=== PATIENT | female | born 1945 | race Caucasian/White ===

== ENCOUNTER 2017-08-23 10:59 | Outpatient (CLI) | payer MEDICARE, OTHER ==
--- NOTE | 2017-08-23 12:56 | MRI ---
MRI CERVICAL SPINE WITHOUT CONTRAST: INDICATIONS: History of cervical radiculopathy. COMPARISON: Prior exam dated 09/10/2016. FINDINGS: There are multilevel losses of normal disk signal and height. The visualized posterior fossa appears within normal limits. The bone marrow signal intensity is normal appearing. No acute fracture is e vident. C2-C3: There is moderate right and mild left facet joint degenerative change, which is stable to the comparison exam. No appreciable central canal or neural foraminal narrowing is demonstrated. C3-C4: There is advanced facet joint degenerative change bilaterally. There is very slight anterior translation of C3 on C4, which is stable. There is no appreciable central canal or neural foraminal narrowing. C4-C5: There is advanced left and mild to moderate right facet joint degenerative change. There is a broad-based disk bulge with uncovertebral hypertrophy. There is stable mild left neural foraminal narrowing. C5-C6: There is a broad-based bulge with uncovertebral hypertrophy and facet joint degenerative oneill ge causing mild effacement of the ventral subarachnoid space without cord compression. The uncoverte bral hypertrophy is slightly greater on the right, inducing mild right neural foraminal narrowing, wh ich is stable. C6-C7: There is a broad-based bulge with uncovertebral hypertrophy inducing stable mild central moises l narrowing without cord compression. There is stable mild right neural foraminal narrowing. C7-T1: There is no definite appreciable central canal or neural foraminal narrowing. IMPRESSION: 1. Stable multilevel spondylosis of the cervical spine with mild central canal narrowing seen at C5- C6 through C6-C7. 2. Mild neural foraminal narrowing, as detailed above. POS: [facility]
== END 2017-08-23 11:00 | disposition home or self-care (01) ==
LOC: TBSIIMAG 10:59
PROVIDERS: ATTEND Surgery
DX: M47.22 Other spondylosis with radiculopathy, cervical region (principal); M48.02 Spinal stenosis, cervical region; M99.81 Other biomechanical lesions of cervical region
CPT/HCPCS: 72141

== ENCOUNTER 2017-10-11 12:57 | Outpatient (CLI) | payer MEDICARE, OTHER | END 2017-10-11 12:58 | disposition home or self-care (01) | LOC: BICMRI 12:57 | PROVIDERS: ATTEND Family Medicine | DX: M51.16 Intervertebral disc disorders with radiculopathy, lumbar region (principal); M51.17 Intervertebral disc disorders with radiculopathy, lumbosacral region | CPT/HCPCS: 72148 ==

== ENCOUNTER 2017-12-28 12:54 | Outpatient (CLI) | payer MEDICARE, OTHER | END 2017-12-28 12:55 | disposition home or self-care (01) | LOC: BICRAD 12:54 | PROVIDERS: ATTEND Surgery | DX: M47.26 Other spondylosis with radiculopathy, lumbar region (principal); M41.86 Other forms of scoliosis, lumbar region | CPT/HCPCS: 72110 ==

== ENCOUNTER 2018-09-18 08:45 | Outpatient (CLI) | payer MEDICARE, OTHER ==
--- NOTE | 2018-09-18 09:11 | BD ---
EXAM: DEXA bone density examination HISTORY: 73-year-old postmenopausal female for screening COMPARISON: DEXA study 2017 FINDINGS: L1--bone mineral density 0.890 g/sq cm; T score -0.9 L2--bone mineral density 0.956 g/sq cm; T score -0.7 L3--bone mineral density 1.138 g/sq cm; T score 0.5 L4--bone mineral density 1.214 g/sq cm; T score 1.4 Total L1-L4--bone mineral density 1.066 g/sq cm; T score 0.2 Left femoral neck--bone mineral density0.641; T score -1.9 Total proximal left femur--bone mineral density 0.835; T score 0.9 This is a significant decrease in bone mineral density of the lumbar spine from the comparison examin ation 2017, -2.4%. IMPRESSION: Osteopenia This patient has a 10 year WHO fracture risk of a major osteoporotic fracture of 11% and of a hip fracture of 2.2%.
== END 2018-09-18 08:46 | disposition home or self-care (01) ==
LOC: BICMAMMO 08:45
PROVIDERS: ATTEND Family Medicine
DX: Z13.820 Encounter for screening for osteoporosis (principal); M85.89 Other specified disorders of bone density and structure, multiple sites; Z78.0 Asymptomatic menopausal state
CPT/HCPCS: 77080

== ENCOUNTER 2020-02-21 13:01 | Outpatient (CLI) | payer MEDICARE, OTHER ==
--- NOTE | 2020-02-21 13:20 | RAD ---
Exam: 3 views lumbar spine HISTORY: Low back pain, read and left buttock. FINDINGS: 5 lumbar type vertebra. Vacuum disc phenomenon at L3-L4 and L4-L5. Moderate loss of disc sp otis height. No fractures or malalignment. There is osteophyte formation at L2-L3, L3-L4. Visualized sacrum and bony pelvis are intact. No spondylolisthesis or spondylolysis. Hypertrophic changes of the posterior elements at L4-L5 and L5 -S1 IMPRESSION: Degenerative disc disease of the lower lumbar spine. Correlation made with lumbar spine M [place] 10/11/2017 does demonstrate significant degenerative change. There is central canal stenosis at these levels. Follow-up MRI may be beneficial.
== END 2020-02-21 13:02 | disposition home or self-care (01) ==
LOC: SCSRAD 13:01
PROVIDERS: ATTEND Family Medicine
DX: M54.5 Low back pain (principal); M51.36 Other intervertebral disc degeneration, lumbar region; M47.816 Spondylosis without myelopathy or radiculopathy, lumbar region; M48.061 Spinal stenosis, lumbar region without neurogenic claudication
CPT/HCPCS: 72100

== ENCOUNTER 2020-04-24 12:29 | Outpatient (CLI) | payer MEDICARE, OTHER ==
--- NOTE | 2020-04-24 13:41 | MRI ---
MRI Lumbar Spine without IVcontrast: HISTORY: Left side sciatica. Patient complains of low back pain that radiates down left leg with associated nu mbness and tingling. COMPARISON: 10/11/2017 FINDINGS: A 1.5 cm T2 hyperintense and corresponding T1 hypointense lesion is seen in the junction of the midpo rtion superior pole right kidney statistically most likely representing a cyst. This has enlarged compared to prior study previously measuring 1 cm. There is incomplete visualization of a 1.97 T2 hyp erintense and corresponding T1 hypointense cystic lesion seen in the left ovary which is difficult to further characterize due to incomplete imaging but likely represents an ovarian cyst. This could b e confirmed with follow-up pelvic ultrasound. Conus medullaris is normal in morphology and terminates at the L1-2 level. Paravertebral soft tissues have a normal appearance. T11-12 and T12-L1: Mild disc bulges are present without significant central canal or neural foraminal narrowing. Prominent Schmorl's node is seen in the inferior endplate of the T10 vertebral body. L1-2: Minimal disc osteophyte complex. Central spinal canal and neural foramina are patent. L2-3: Again noted is a Schmorl's node present in the inferior endplate L2 vertebral body. Loss of int ervertebral disc height is present. Broad based disc osteophyte complex is present. Facet hypertrophic changes and ligamentous thickening are noted. Findings are similar to the prior exam res ulting in mild to moderate central canal narrowing. No significant neural foraminal narrowing is present. L3-4: Loss of intervertebral disc height with endplate degenerative changes. Broad-based disc osteoph yte complex is present. There are facet hypertrophic changes and ligamentous thickening. Moderate central canal narrowing is present with narrowing of the lateral recesses. Minimal bilateral neural f oraminal narrowing is present. L4-5: Loss of intervertebral disc height. Endplate degenerative changes are present. There is broad-b ased disc osteophyte complex, facet hypertrophic changes and ligamentous thickening. Findings result in moderate to severe central canal narrowing. There is mild right and minimal left-sided neur al foraminal narrowing. L5-S1: Loss of intervertebral disc height. Facet hypertrophic changes and ligamentous thickening are noted. Broad-based disc osteophyte complex is present with a left central and paracentral focal disc protrusion. This does result in mass effect on the traversing left S1 nerve root with slight pos terior displacement of the nerve root as well. A disc osteophyte complex also appears to contact the traversing right S1 nerve root. Mild generalized central canal narrowing is present. Again noted is left foraminal narrowing, and the disc osteophyte complex laterally does appear to contact the exiting left L5 nerve root. 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 IMPRESSION: 1. Multilevel degenerative changes seen throughout the lumbar spine majority of which have not signif icantly progressed when compared to the prior exam. However, there is a greater broad-based central and left paracentral disc protrusion now present at the L5-S1 level which contacts the bilateral santiago ersing S1 nerve roots with mass effect and slight posterior displacement of the left S1 nerve root. Correlation for left S1 radiculopathy is recommended. 2. Findings suggestive of right renal cyst with probable left ovarian cyst. Cystic lesion left ovary is incompletely imaged. Follow-up pelvic ultrasound may be helpful.
--- NOTE | 2020-04-24 14:44 | RAD ---
LEFT HIP TWO VIEWS: 04/24/20 HISTORY: Hip pain. Arthritic changes of the lower lumbar spine is seen. Left hip joint is fairly well preserved. No frac ture or other bony findings. IMPRESSION: Unremarkable left hip. POS: [facility]
== END 2020-04-24 12:30 | disposition home or self-care (01) ==
LOC: BICMRI 12:29
PROVIDERS: ATTEND Family Medicine
DX: M25.552 Pain in left hip (principal); M51.16 Intervertebral disc disorders with radiculopathy, lumbar region; M43.10 Spondylolisthesis, site unspecified; M47.26 Other spondylosis with radiculopathy, lumbar region; M51.27 Other intervertebral disc displacement, lumbosacral region
CPT/HCPCS: 72148

== ENCOUNTER 2020-05-01 10:46 | Outpatient (CLI) | payer MEDICARE, OTHER ==
--- NOTE | 2020-05-01 11:36 | ULT ---
Pelvic ultrasound: 05/01/2020 COMPARISON: None available HISTORY: Cystic lesion in the left ovary seen on prior lumbar spine MRI TECHNIQUE: Multiplanar grayscale sonographic imaging of the pelvis is obtained with endovaginal imagi ng. The left ovary is assessed with Doppler interrogation including color flow and spectral analysis FINDINGS: The left ovary measures 2.8 x 1.9 x 2.4 cm and contains a simple appearing cyst measuring 2 .1 x 1.4 x 2.3 cm. The left ovary demonstrates normal blood flow. No free pelvic fluid is seen. The uterus and the right ovary are nonvisualized, consistent with the patient's provided surgical history . IMPRESSION: 2.3 cm simple cyst left ovary. Follow-up advised given patient age.
== END 2020-05-01 10:47 | disposition home or self-care (01) ==
LOC: BICULT 10:46
PROVIDERS: ATTEND Family Medicine
DX: N83.202 Unspecified ovarian cyst, left side (principal)
CPT/HCPCS: 76856

== ENCOUNTER 2020-08-20 14:45 | Outpatient (CLI) | payer MEDICARE, OTHER | END 2020-08-20 14:46 | disposition home or self-care (01) | LOC: BICRAD 14:45 | PROVIDERS: ATTEND Family Medicine | DX: M25.552 Pain in left hip (principal); M79.652 Pain in left thigh ==

== ENCOUNTER 2020-10-29 14:17 | Outpatient (CLI) | payer MEDICARE, OTHER | END 2020-10-29 14:18 | disposition home or self-care (01) | LOC: SCSMRI 14:17 | PROVIDERS: ATTEND Specialist | DX: M87.9 Osteonecrosis, unspecified (principal) ==

== ENCOUNTER 2021-10-19 14:12 | Outpatient (CLI) | payer MEDICARE, OTHER | END 2021-10-19 14:13 | disposition home or self-care (01) | LOC: SCSRAD 14:12 | PROVIDERS: ATTEND Family Medicine | DX: S20.211A Contusion of right front wall of thorax, initial encounter (principal); N39.0 Urinary tract infection, site not specified; B96.20 Unspecified Escherichia coli [E. coli] as the cause of diseases classified elsewhere | CPT/HCPCS: 71046; 80053; 85025 ==

== ENCOUNTER 2021-10-28 14:54 | Outpatient (CLI) | payer MEDICARE | END 2021-10-28 14:55 | disposition home or self-care (01) | LOC: CT 14:54 | PROVIDERS: ATTEND Family Medicine | DX: R10.9 Unspecified abdominal pain (principal); S20.211A Contusion of right front wall of thorax, initial encounter; B96.20 Unspecified Escherichia coli [E. coli] as the cause of diseases classified elsewhere; R11.2 Nausea with vomiting, unspecified; R74.8 Abnormal levels of other serum enzymes; N20.0 Calculus of kidney; N83.8 Other noninflammatory disorders of ovary, fallopian tube and broad ligament | CPT/HCPCS: 74176 ==

== ENCOUNTER 2022-07-22 11:02 | Outpatient (CLI) | payer MEDICARE, OTHER ==
[2022-07-22] MEDS ORDERED: GASTROGRAFIN 30 ML BOT ONE (15:36)
[2022-07-22] MEDS ORDERED: Iopamidol 370 76% 100 ML VIAL ONE (15:36)
== END 2022-07-22 11:03 | disposition home or self-care (01) ==
LOC: CT 11:02
PROVIDERS: ATTEND Surgery
DX: Z12.9 Encounter for screening for malignant neoplasm, site unspecified (principal); K63.89 Other specified diseases of intestine; N28.1 Cyst of kidney, acquired; N20.0 Calculus of kidney; S72.002A Fracture of unspecified part of neck of left femur, initial encounter for closed fracture; N94.89 Other specified conditions associated with female genital organs and menstrual cycle
CPT/HCPCS: 71270; 74178; 82565; Q9963; Q9967

== ENCOUNTER 2022-07-22 16:27 | Inpatient (IN) | payer OTHER, MEDICARE ==
[2022-07-22] MEDS ORDERED: Ketorolac Tromethamine 30 MG/ML VIAL ONE (17:42)
[2022-07-22 18:08] LABS: #Basophils 0.1 thou/uL (0.0-0.2); #Lymphocytes 2.3 thou/uL (1.20-3.40); #Monocytes 0.8 thou/uL (0.11-0.59); #Neutrophils 7.7 thou/uL (1.40-6.50); %Basophils 0.9 % (0.0-1.0); %Eosinophils 0.3 % (0.0-10.0); %Lymphocytes 21.3 % (21.0-51.0); %Monocytes 7.5 % (0.0-10.0); Hemoglobin 10.4 g/dL (12.0-16.0); Mean Corpuscular HGB CONC 34.7 g/dL (32.0-36.0); Mean Corpuscular Hemoglobin 33.7 pg (27.0-31.0); Mean Corpuscular Volume 97.3 fl (78.0-98.0); Mean Platelet Volume 6.6 fL (7.4-10.4); Platelet Count 358 10x3/uL (130-400); RBC Distribution Width 12.8 % (11.5-14.5); Red Blood Cell (RBC) Count 3.09 mill/uL (4.20-5.40)
[2022-07-22 18:15] LABS: INR-International Normal Ratio 0.9; PTT 27.1 sec (22.9-36.1); Prothrombin Time 12.9 sec (12.0-14.7)
[2022-07-22 18:28] LABS: ALT (SGPT) 29 U/L (8-55); AST (SGOT) 22 U/L (5-34); Albumin 4.2 g/dL (3.4-4.8); Alkaline Phosphatase 139 U/L (40-110); Anion Gap 13 mmol/L (10-20); BUN (Urea Nitrogen) 20 mg/dL (9.8-20.1); Bilirubin, Total 0.3 mg/dL (0.2-1.2); Calc. Creatinine Clearance 0 mL/min (70-130); Calcium 9.9 mg/dL (7.8-10.44); Carbon Dioxide 28 mmol/L (23-31); Chloride 96 mmol/L (98-107); Estimated GFR 51; Globulin 2.8 g/dL (2.4-3.5); Glucose 85 mg/dL (83-110); Potassium 4.5 mmol/L (3.5-5.1); Sodium 132 mmol/L (136-145)
[2022-07-22] MEDS ORDERED: Ondansetron PF 4 MG/2 ML Vial ONE (18:54)
[2022-07-22 19:02] LABS: Phosphorus 3.6 mg/dL (2.3-4.7)
[2022-07-22] MEDS ORDERED: Morphine 2 MG/ML VIAL SLOW IVP PRN (19:02)
[2022-07-22] MEDS ORDERED: Dextrose 50% Abboject 50 ML SYRINGE SLOW IVP PRN (19:02)
[2022-07-22] MEDS ORDERED: Ondansetron PF 4 MG/2 ML Vial IVP PRN (19:02)
[2022-07-22] MEDS ORDERED: hydrALAZINE 20 MG/ML VIAL SLOW IVP PRN (19:02)
[2022-07-22] MEDS ORDERED: Dextrose 5% in Water 1,000 ML IV PRN (19:02)
[2022-07-22] MEDS ORDERED: traMADol HCl 50 MG TAB PO PRN (19:05)
[2022-07-22] MEDS ORDERED: Morphine 4 MG/ML VIAL ONE (19:07)
[2022-07-22] MEDS: Sodium Chloride 0.9% 1,000 ML IV SCH (20:38)
[2022-07-22] MEDS: Acetaminophen 500 MG TAB PO SCH (20:39)
[2022-07-22] MEDS: traMADol HCl 50 MG TAB PO SCH (20:40)
[2022-07-22] MEDS: Senokot S 8.6-50 MG TAB PO SCH (20:40)
[2022-07-22] MEDS ORDERED: Famotidine 20 MG TAB PO SCH (21:00)
[2022-07-22 22:36] VITALS: BMI 21.0
[2022-07-23] MEDS: traMADol HCl 50 MG TAB PO SCH ×4 (01:12→19:36)
[2022-07-23] MEDS: Acetaminophen 500 MG TAB PO SCH ×4 (01:13→19:32)
[2022-07-23 06:14] LABS: #Lymphocytes 1.8 thou/uL (1.20-3.40); #Monocytes 0.7 thou/uL (0.11-0.59); #Neutrophils 5.4 thou/uL (1.40-6.50); %Basophils 0.5 % (0.0-1.0); %Eosinophils 0.5 % (0.0-10.0); %Monocytes 8.4 % (0.0-10.0); %Neutrophils 67.6 % (42.0-75.0); Hemoglobin 9.2 g/dL (12.0-16.0); Mean Corpuscular HGB CONC 32.7 g/dL (32.0-36.0); Mean Corpuscular Hemoglobin 32.1 pg (27.0-31.0); Mean Corpuscular Volume 98.1 fl (78.0-98.0); Mean Platelet Volume 6.6 fL (7.4-10.4); Platelet Count 314 10x3/uL (130-400); RBC Distribution Width 12.9 % (11.5-14.5); Red Blood Cell (RBC) Count 2.88 mill/uL (4.20-5.40)
[2022-07-23 06:32] LABS: Anion Gap 14 mmol/L (10-20); BUN (Urea Nitrogen) 19 mg/dL (9.8-20.1); Calc. Creatinine Clearance 38 mL/min (70-130); Carbon Dioxide 23 mmol/L (23-31); Chloride 99 mmol/L (98-107); Estimated GFR 55; Glucose 82 mg/dL (83-110); Magnesium 1.9 mg/dL (1.6-2.6); Potassium 4.4 mmol/L (3.5-5.1); Sodium 132 mmol/L (136-145)
[2022-07-23] MEDS: Sodium Chloride 0.9% 1,000 ML IV SCH (06:51)
[2022-07-23] MEDS ORDERED: Clindamycin/D5W 900 MG in Premix Bag 1 BAG IVPB SCH (09:00)
[2022-07-23] MEDS ORDERED: fentaNYL PF 100 MCG/2 ML SYRINGE ONE (09:32)
[2022-07-23] MEDS ORDERED: CEFAZOLIN 2 GM VIAL ONE (09:38)
[2022-07-23] MEDS ORDERED: Sodium Chloride 0.9% 0 ML ONE (09:38)
[2022-07-23] MEDS ORDERED: Clindamycin/D5W 900 mg/50 ml Premix Bag ONE (09:44)
[2022-07-23] MEDS ORDERED: Rocuronium Bromide 10 MG/ML (10ML VIAL) ONE (09:59)
[2022-07-23] MEDS ORDERED: Lidocaine 1% PF 5 ML VIAL ONE (09:59)
[2022-07-23] MEDS ORDERED: Phenylephrine 10 MG/ML VIAL ONE (09:59)
[2022-07-23] MEDS ORDERED: GLYCOPYRROLATE/PF 0.2 MG/ML VIAL ONE (09:59)
[2022-07-23] MEDS ORDERED: Ketorolac Tromethamine 30 MG/ML VIAL ONE (09:59)
[2022-07-23] MEDS ORDERED: Ondansetron PF 4 MG/2 ML Vial ONE ×2 (09:59→12:08)
[2022-07-23] MEDS ORDERED: PROPOFOL 200 MG/20 ML VIAL ONE (09:59)
[2022-07-23] MEDS ORDERED: ePHEDrine Sulfate 50 MG/10 ML VIAL ONE (09:59)
[2022-07-23] MEDS ORDERED: NEOSTIGMINE 3 MG/3 ML SYR 3 MG/3 ML SYRINGE ONE (09:59)
[2022-07-23] MEDS ORDERED: SUGAMMADEX SODIUM 200 MG/2 ML VIAL ONE (11:02)
[2022-07-23] MEDS ORDERED: Ondansetron HCl/PF 4 MG/2 ML Vial IVP PRN (11:15)
[2022-07-23] MEDS ORDERED: Promethazine HCl 25 MG/ML VIAL IM PRN (11:15)
[2022-07-23] MEDS ORDERED: fentaNYL 50 mcg/mL 1 mL Vial ONE ×2 (11:29→12:08)
[2022-07-23] MEDS: Senokot S 8.6-50 MG TAB PO SCH ×2 (11:33→20:39)
[2022-07-23] MEDS: Polyethylene Glycol 3350 17 GM Packet PO SCH (11:33)
[2022-07-23] MEDS ORDERED: Promethazine HCl 25 MG/ML VIAL ONE (12:23)
[2022-07-23 14:28] LABS: #Lymphocytes 1.2 thou/uL (1.20-3.40); #Monocytes 1.3 thou/uL (0.11-0.59); #Neutrophils 15.7 thou/uL (1.40-6.50); %Eosinophils 0.2 % (0.0-10.0); %Lymphocytes 6.7 % (21.0-51.0); %Monocytes 7.4 % (0.0-10.0); %Neutrophils 85.8 % (42.0-75.0); Hemoglobin 8.6 g/dL (12.0-16.0); Mean Corpuscular HGB CONC 32.9 g/dL (32.0-36.0); Mean Corpuscular Hemoglobin 33.1 pg (27.0-31.0); Mean Platelet Volume 6.6 fL (7.4-10.4); Platelet Count 298 10x3/uL (130-400); RBC Distribution Width 12.8 % (11.5-14.5); White Blood Cell (WBC) Count 18.2 10x3/uL (4.8-10.8)
[2022-07-23 14:53] LABS: Anion Gap 16 mmol/L (10-20); BUN (Urea Nitrogen) 16 mg/dL (9.8-20.1); Calc. Creatinine Clearance 41 mL/min (70-130); Calcium 8.5 mg/dL (7.8-10.44); Carbon Dioxide 18 mmol/L (23-31); Chloride 104 mmol/L (98-107); Estimated GFR 60; Glucose 95 mg/dL (83-110); Magnesium 1.6 mg/dL (1.6-2.6); Phosphorus 4.2 mg/dL (2.3-4.7); Potassium 4.1 mmol/L (3.5-5.1); Sodium 134 mmol/L (136-145)
[2022-07-23] MEDS ORDERED: Hydrocortisone Sod Succ/PF 100 mg/2 ml Vial IVP SCH ×2 (16:45→22:00)
[2022-07-23] MEDS: Dexamethasone 4 mg/ml Vial SLOW IVP SCH (17:51)
[2022-07-23] MEDS: Clindamycin/D5W 900 MG in Premix Bag 1 BAG IVPB SCH (20:38)
[2022-07-23] MEDS: Famotidine 20 MG TAB PO SCH (20:39)
[2022-07-24 00:10] LABS: Bacteria/HPF None Seen HPF (None Seen); Bilirubin Negative (Negative); Blood, Urine Negative (Negative); CAUTI Indications for Culture Pelvic or flank pain; Clarity Clear (Clear); Glucose, Urine (Dipstick) Normal (Negative); Ketone, Urine 20 mg/dL (Negative); Leukocyte Negative Leu/uL (Negative); Nitrite Negative (Negative); Protein, Urine (Dipstick) Negative (Neg-Trace); RBC/HPF 0-3 HPF (0-3); Specific Gravity, Urine 1.008 (1.002-1.036); Squamous Epithelial 0-3 HPF (0-3); Urobilinogen Normal mg/dL (Less than 2); WBC/HPF 0-3 HPF (0-3)
[2022-07-24 00:18] LABS: Urine Culture Reflex No No
[2022-07-24] MEDS: Dexamethasone 4 mg/ml Vial SLOW IVP SCH ×2 (00:43→10:05)
[2022-07-24] MEDS: Acetaminophen 500 MG TAB PO SCH ×4 (00:44→20:13)
[2022-07-24] MEDS: traMADol HCl 50 MG TAB PO SCH ×4 (00:45→20:13)
[2022-07-24] MEDS: Clindamycin/D5W 900 MG in Premix Bag 1 BAG IVPB SCH ×2 (03:50→11:24)
[2022-07-24 07:27] LABS: Anion Gap 13 mmol/L (10-20); BUN (Urea Nitrogen) 16 mg/dL (9.8-20.1); Calc. Creatinine Clearance 37 mL/min (70-130); Calcium 9.2 mg/dL (7.8-10.44); Carbon Dioxide 24 mmol/L (23-31); Chloride 100 mmol/L (98-107); Estimated GFR 54; Glucose 160 mg/dL (83-110); Magnesium 1.8 mg/dL (1.6-2.6); Phosphorus 3.4 mg/dL (2.3-4.7); Potassium 4.9 mmol/L (3.5-5.1); Sodium 132 mmol/L (136-145)
[2022-07-24 07:46] LABS: #Lymphocytes 0.6 thou/uL (1.20-3.40); #Monocytes 0.3 thou/uL (0.11-0.59); #Neutrophils 6.4 thou/uL (1.40-6.50); %Lymphocytes 7.9 % (21.0-51.0); %Monocytes 4.2 % (0.0-10.0); %Neutrophils 87.9 % (42.0-75.0); Mean Corpuscular HGB CONC 33.3 g/dL (32.0-36.0); Mean Corpuscular Hemoglobin 32.5 pg (27.0-31.0); Mean Corpuscular Volume 97.4 fl (78.0-98.0); Mean Platelet Volume 6.8 fL (7.4-10.4); Platelet Count 238 10x3/uL (130-400); RBC Distribution Width 12.9 % (11.5-14.5); Red Blood Cell (RBC) Count 1.83 mill/uL (4.20-5.40); White Blood Cell (WBC) Count 7.3 10x3/uL (4.8-10.8)
[2022-07-24 08:56] LABS: #Lymphocytes 0.6 thou/uL (1.20-3.40); #Monocytes 0.4 thou/uL (0.11-0.59); #Neutrophils 7.3 thou/uL (1.40-6.50); %Basophils 0.2 % (0.0-1.0); %Lymphocytes 7.7 % (21.0-51.0); %Monocytes 5.3 % (0.0-10.0); %Neutrophils 86.8 % (42.0-75.0); Hemoglobin 6.4 g/dL (12.0-16.0); Mean Corpuscular HGB CONC 34.6 g/dL (32.0-36.0); Mean Corpuscular Hemoglobin 33.6 pg (27.0-31.0); Mean Corpuscular Volume 97.3 fl (78.0-98.0); Mean Platelet Volume 6.9 fL (7.4-10.4); Platelet Count 249 10x3/uL (130-400); RBC Distribution Width 12.8 % (11.5-14.5); White Blood Cell (WBC) Count 8.4 10x3/uL (4.8-10.8)
[2022-07-24] MEDS: Polyethylene Glycol 3350 17 GM Packet PO SCH (10:01)
[2022-07-24] MEDS: Senokot S 8.6-50 MG TAB PO SCH ×2 (10:01→20:13)
[2022-07-24] MEDS: Cyclobenzaprine 10 MG TAB PO PRN (15:08)
[2022-07-24 16:53] LABS: #Basophils 0.1 thou/uL (0.0-0.2); #Lymphocytes 0.6 thou/uL (1.20-3.40); #Monocytes 0.9 thou/uL (0.11-0.59); #Neutrophils 10.4 thou/uL (1.40-6.50); %Basophils 1.1 % (0.0-1.0); %Eosinophils 0.1 % (0.0-10.0); %Monocytes 7.6 % (0.0-10.0); %Neutrophils 86.2 % (42.0-75.0); Hemoglobin 7.9 g/dL (12.0-16.0); Mean Corpuscular HGB CONC 35.9 g/dL (32.0-36.0); Mean Corpuscular Hemoglobin 33.9 pg (27.0-31.0); Mean Corpuscular Volume 94.5 fl (78.0-98.0); Mean Platelet Volume 6.8 fL (7.4-10.4); Platelet Count 218 10x3/uL (130-400); RBC Distribution Width 13.8 % (11.5-14.5); Red Blood Cell (RBC) Count 2.32 mill/uL (4.20-5.40)
[2022-07-24] MEDS: Famotidine 20 MG TAB PO SCH (20:13)
[2022-07-24 22:09] LABS: Bilirubin Negative (Negative); Blood, Urine Negative (Negative); Clarity Clear (Clear); Glucose, Urine (Dipstick) Normal (Negative); Ketone, Urine Negative (Negative); Leukocyte Negative Leu/uL (Negative); Nitrite Negative (Negative); Protein, Urine (Dipstick) 10 mg/dL (Neg-Trace); Specific Gravity, Urine 1.022 (1.002-1.036); Urobilinogen Normal mg/dL (Less than 2); pH, Urine 5.5 (5.0-9.0)
[2022-07-25] MEDS: traMADol HCl 50 MG TAB PO SCH ×4 (00:08→18:41)
[2022-07-25] MEDS: Acetaminophen 500 MG TAB PO SCH ×4 (00:08→18:41)
[2022-07-25] MEDS: Dexamethasone 4 mg/ml Vial SLOW IVP SCH ×3 (00:09→08:45)
[2022-07-25] MEDS: Cyclobenzaprine 10 MG TAB PO PRN (00:09)
[2022-07-25] MEDS: Levothyroxine Sodium 25 MCG TAB PO SCH (05:49)
[2022-07-25 06:40] LABS: Anisocytosis SLIGHT = 6-15 cells (100X) (0-5/hpf); Band 4 % (5-11); Hemoglobin 8.9 g/dL (12.0-16.0); Lymphocytes 9 % (21-51); MDiff Complete? YES; Mean Corpuscular HGB CONC 35.7 g/dL (32.0-36.0); Mean Corpuscular Hemoglobin 33.6 pg (27.0-31.0); Mean Corpuscular Volume 94.1 fl (78.0-98.0); Monocytes 3 % (0-10); Neutrophil 84 % (42-75); Platelet Count 258 10x3/uL (130-400); Platelet Morphology Comment Appears Adequate; RBC Distribution Width 14.6 % (11.5-14.5); Red Blood Cell (RBC) Count 2.65 mill/uL (4.20-5.40); White Blood Cell (WBC) Count 17.8 10x3/uL (4.8-10.8)
[2022-07-25] MEDS: Polyethylene Glycol 3350 17 GM Packet PO SCH (08:46)
[2022-07-25] MEDS: Senokot S 8.6-50 MG TAB PO SCH ×2 (08:46→21:23)
[2022-07-25] MEDS: Aspirin 81 mg Enteric Coated Tablet PO SCH ×2 (08:50→21:23)
[2022-07-25] MEDS: Rosuvastatin 5 MG TAB PO SCH (08:52)
[2022-07-25] MEDS: Famotidine 20 MG TAB PO SCH (21:23)
[2022-07-26] MEDS: Acetaminophen 500 MG TAB PO SCH ×4 (00:59→18:30)
[2022-07-26] MEDS: traMADol HCl 50 MG TAB PO SCH ×4 (00:59→18:24)
[2022-07-26 06:05] LABS: #Basophils 0.1 thou/uL (0.0-0.2); #Lymphocytes 1.8 thou/uL (1.20-3.40); #Monocytes 1.4 thou/uL (0.11-0.59); %Basophils 0.7 % (0.0-1.0); %Eosinophils 0.3 % (0.0-10.0); %Lymphocytes 10.2 % (21.0-51.0); %Monocytes 7.9 % (0.0-10.0); %Neutrophils 80.9 % (42.0-75.0); Hemoglobin 8.9 g/dL (12.0-16.0); Mean Corpuscular HGB CONC 33.8 g/dL (32.0-36.0); Mean Corpuscular Hemoglobin 31.9 pg (27.0-31.0); Mean Corpuscular Volume 94.3 fl (78.0-98.0); Platelet Count 304 10x3/uL (130-400); RBC Distribution Width 14.5 % (11.5-14.5); Red Blood Cell (RBC) Count 2.81 mill/uL (4.20-5.40); White Blood Cell (WBC) Count 17.3 10x3/uL (4.8-10.8)
[2022-07-26] MEDS: Levothyroxine Sodium 25 MCG TAB PO SCH (06:15)
[2022-07-26 06:28] LABS: Anion Gap 15 mmol/L (10-20); BUN (Urea Nitrogen) 17 mg/dL (9.8-20.1); Calc. Creatinine Clearance 44 mL/min (70-130); Calcium 9.3 mg/dL (7.8-10.44); Carbon Dioxide 21 mmol/L (23-31); Chloride 103 mmol/L (98-107); Estimated GFR 67; Glucose 101 mg/dL (83-110); Potassium 3.9 mmol/L (3.5-5.1); Sodium 135 mmol/L (136-145)
[2022-07-26] MEDS: Rosuvastatin 5 MG TAB PO SCH (07:54)
[2022-07-26] MEDS: Senokot S 8.6-50 MG TAB PO SCH ×2 (07:54→20:00)
[2022-07-26] MEDS: Polyethylene Glycol 3350 17 GM Packet PO SCH (07:54)
[2022-07-26] MEDS: Aspirin 81 mg Enteric Coated Tablet PO SCH ×2 (07:54→20:02)
[2022-07-26] MEDS: Famotidine 20 MG TAB PO SCH (20:02)
[2022-07-27] MEDS: traMADol HCl 50 MG TAB PO SCH ×3 (01:09→12:43)
[2022-07-27] MEDS: Acetaminophen 500 MG TAB PO SCH ×3 (01:17→12:42)
[2022-07-27] MEDS: Levothyroxine Sodium 25 MCG TAB PO SCH (06:03)
[2022-07-27] MEDS: Aspirin 81 mg Enteric Coated Tablet PO SCH (08:10)
[2022-07-27] MEDS: Polyethylene Glycol 3350 17 GM Packet PO SCH (08:10)
[2022-07-27] MEDS: Senokot S 8.6-50 MG TAB PO SCH (08:10)
[2022-07-27] MEDS: Rosuvastatin 5 MG TAB PO SCH (08:10)
[2022-07-27] MEDS ORDERED: Lisinopril 20 MG TAB PO SCH (10:15)
[2022-07-27 11:57] VITALS: TEMP 98.5
[2022-07-27 14:42] VITALS: BP 152/76
[2022-07-28] MEDS ORDERED: Lisinopril 20 MG TAB PO SCH (09:00)
== END 2022-07-27 15:15 | disposition home health service (06) | DRG 522 ==
LOC: ERS 16:27 → SJJU 18:17
PROVIDERS: ADMIT Surgery; ATTEND Surgery
PROC: 0SRS0JZ Replacement of Left Hip Joint, Femoral Surface with Synthetic Substitute, Open Approach (ICD-10-PCS; principal; 2022-07-23)
PROC: 30233N1 Transfusion of Nonautologous Red Blood Cells into Peripheral Vein, Percutaneous Approach (ICD-10-PCS; 2022-07-24)
DX: S72.002A Fracture of unspecified part of neck of left femur, initial encounter for closed fracture (principal); E87.1 Hypo-osmolality and hyponatremia; D62 Acute posthemorrhagic anemia; W19.XXXA Unspecified fall, initial encounter; N18.30 Chronic kidney disease, stage 3 unspecified; I12.9 Hypertensive chronic kidney disease with stage 1 through stage 4 chronic kidney disease, or unspecified chronic kidney disease; E78.5 Hyperlipidemia, unspecified; E03.9 Hypothyroidism, unspecified; H35.30 Unspecified macular degeneration; D72.829 Elevated white blood cell count, unspecified; M51.36 Other intervertebral disc degeneration, lumbar region; Z98.890 Other specified postprocedural states; Z90.710 Acquired absence of both cervix and uterus; Z88.0 Allergy status to penicillin; Y92.89 Other specified places as the place of occurrence of the external cause
CPT/HCPCS: 36415; 36430; 71045; 72170; 80048; 80053; 81001; 81003; 82533; 83735; 83880; 84100; 84484; 85025; 85610; 85730; 86850; 86900; 86901; 87040; 93005; 93970; 96374; 96375; C1713; C1776; J1100; J1885; J2270; J2272; J2370; J2405; J2550; J2704; J3010; J3490; J7050; P9016; P9045

== ENCOUNTER 2023-03-21 09:38 | Day surgery (SDC) | payer MEDICARE, OTHER ==
[2023-03-18 11:33] VITALS: BMI 21.0
[2023-03-21] MEDS ORDERED: fentaNYL 50 mcg/mL 1 mL Vial ONE (11:56)
[2023-03-21] MEDS ORDERED: PROPOFOL 200 MG/20 ML VIAL ONE (12:30)
[2023-03-21] MEDS ORDERED: Ondansetron PF 4 MG/2 ML Vial ONE (12:30)
[2023-03-21] MEDS ORDERED: Lidocaine 1% PF 5 ML VIAL ONE (12:30)
== END 2023-03-21 14:36 | disposition home or self-care (01) ==
LOC: MRI 09:38
PROVIDERS: ATTEND Specialist
DX: M51.16 Intervertebral disc disorders with radiculopathy, lumbar region (principal); M51.17 Intervertebral disc disorders with radiculopathy, lumbosacral region; M48.02 Spinal stenosis, cervical region; M43.12 Spondylolisthesis, cervical region; E78.5 Hyperlipidemia, unspecified; E03.9 Hypothyroidism, unspecified; I12.9 Hypertensive chronic kidney disease with stage 1 through stage 4 chronic kidney disease, or unspecified chronic kidney disease; N18.30 Chronic kidney disease, stage 3 unspecified; Z88.1 Allergy status to other antibiotic agents; Z88.0 Allergy status to penicillin; Z88.8 Allergy status to other drugs, medicaments and biological substances; Z96.651 Presence of right artificial knee joint; Z79.899 Other long term (current) drug therapy; Z90.710 Acquired absence of both cervix and uterus
CPT/HCPCS: 72148; J3010; J2405; J2704

== ENCOUNTER 2024-03-13 09:02 | Outpatient (CLI) | payer MEDICARE, OTHER | END 2024-03-13 09:03 | disposition home or self-care (01) | LOC: SCSMRI 09:02 | PROVIDERS: ATTEND Surgery | DX: M48.061 Spinal stenosis, lumbar region without neurogenic claudication (principal); M47.815 Spondylosis without myelopathy or radiculopathy, thoracolumbar region; M47.816 Spondylosis without myelopathy or radiculopathy, lumbar region; M47.817 Spondylosis without myelopathy or radiculopathy, lumbosacral region; N83.292 Other ovarian cyst, left side | CPT/HCPCS: 72148 ==